=== PATIENT | male | born 1945 | race Caucasian/White ===

== ENCOUNTER 2016-06-12 00:14 | Emergency (ER) | payer OTHER ==
--- NOTE | 2016-06-12 00:44 | ED Physician Documentation ---
General Adult - HISTORIAN Historian: patient - HPI Stated Complaint: leg pain Chief Complaint: General Adult Onset: hours Timing: still present Severity: moderate Further Comments: yes (Pt is a 71 yo male with c/o L hip pain that has been of gradual onset for about 3 weeks. Pain is in the L buttock and pt says it is not in the joint. No acute injury. Pt has mult med issues including DM and chronic burning pain in both lower extremities.) - ROS CONST: no problems EYES/ENT: none CVS/RESP: none GI/: none MS/SKIN/LYMPH: other (L hip pain) - PAST HX Past History: hypertension, other (DM, GERD) Allergies/Adverse Reactions: Allergies Allergy/AdvReac Type Severity Reaction Status Date / Time No Known Allergies Allergy Verified 06/12/16 00:26 Home Medications: Ambulatory Orders Medication Instructions Recorded Aspirin/Dipyridamole 1 tab PO BID 06/12/16 [Aspirin-Dipyridam ER 25-200 mg] Insulin NPH Human Isophane 30 units SQ BID 06/12/16 [Humulin N] Meloxicam [Mobic] 7.5 mg PO D 06/12/16 Quinapril HCl [Quinapril HCl] 20 mg PO D 06/12/16 Ranitidine HCl [Zantac] 150 mg PO BID 06/12/16 - SOCIAL HX Smoking History: non-smoker - FAMILY HX Family History: No - REVIEWED ASSESSMENTS Nursing Assessment Reviewed: Yes Vitals Reviewed: Yes Progress - Progress Progress: Diazepam 5 mg IM little change Percocet (5/325) 2 tabs po. Toradol 30 mg IM some improvement General Adult Physical Exam - PHYSICAL EXAM GENERAL APPEARANCE: moderate distress EENT: eye inspection normal, ENT inspection normal, pharynx normal NECK: normal inspection, supple RESPIRATORY: no resp distress, chest non-tender, breath sounds normal CVS: reg rate & rhythm, heart sounds normal BACK: normal inspection, no CVA tenderness, other (pain/spasm L lower back/ buttock) SKIN: warm/dry, normal color EXTREMITIES: non-tender, normal range of motion NEURO: oriented X3, motor nml, sensation nml Discharge Clincal Impression: Musculoskeletal pain, Left hip pain Referrals: Gilbert Del Rosario [Primary Care Provider] - Home Medications: Ambulatory Orders Aspirin/Dipyridamole [Aspirin-Dipyridam ER 25-200 mg] 1 tab PO BID 06/12/16 Insulin NPH Human Isophane [Humulin N] 30 units SQ BID 06/12/16 Meloxicam [Mobic] 7.5 mg PO D 06/12/16 Quinapril HCl [Quinapril HCl] 20 mg PO D 06/12/16 Ranitidine HCl [Zantac] 150 mg PO BID 06/12/16 Condition: Good Disposition: 01 HOME, SELF-CARE Decision to Admit: NO Decision Time: 02:03
[2016-06-12] MEDS: DIAZEPAM 5 MG/ML DISP.SYRIN IM ONE (01:00)
[2016-06-12] MEDS: oxyCODONE/ACETAMINOPHEN 5/325 TABLET PO ONE (01:30)
[2016-06-12] MEDS ORDERED: KETOROLAC TROMETHAMINE 30 MG/1ML VIAL ONE (02:00)
[2016-06-12] MEDS: KETOROLAC TROMETHAMINE 30 MG/1ML VIAL IM ONE (02:05)
[2016-06-12 02:36] VITALS: BP 163/97
== END 2016-06-12 02:26 | disposition home or self-care (01) ==
LOC: ED 00:14
DX: M25.552 Pain in left hip (principal); M79.1 Myalgia
CPT/HCPCS: A9270; J1885; J3360; 96372; 99283